=== PATIENT | female | born 1975 | race Two or more races ===

== ENCOUNTER 2016-07-22 22:59 | Emergency (ER) | payer MEDICAID ==
[2016-07-23 00:09] LABS: COLOR PALE YELLOW; LEUKOCYTE ESTERASE,URINE NEGATIVE (NEGATIVE); NITRITE,URINE NEGATIVE (NEGATIVE)
[2016-07-23 00:12] LABS: BACTERIA TRACE /hpf (NONE SEEN); MUCUS TRACE /lpf (NONE-1+)
[2016-07-23] MEDS ORDERED: ACETAMINOPHEN 500 MG TAB PO ONE (00:14)
--- NOTE | 2016-07-23 00:15 | EDPHY ---
H & P Stated Complaint: Body aches, Sore throat, dry mouth, coughing for two days Time Seen by Provider: 07/22/16 23:23 HPI/ROS: HPI The patient presents with 3 days of myalgias, sore throat, cough, bilateral ear pain, back pain. This is associated with subjective fever. Her is also sick. Her throat pain is what is bothering her the worst right now, it is achy , worse when she swallows, is not associated with any neck pain or stiffness. It is moderate in severity. She has not had a flu shot this year. She reports increased urinary frequency without dysuria.. REVIEW OF SYSTEMS Constitutional: See HPI Eyes: No discharge. ENT: + sore throat. Cardiovascular: No chest pain, no palpitations. Respiratory: + cough, no shortness of breath. Gastrointestinal: No abdominal pain, no vomiting. Genitourinary: No hematuria. Musculoskeletal: No back pain. Skin: No rashes. Neurological: No headache. PMHx: Healthy, followed at [facility] Hx: No alcohol or drug use PHYSICAL General Appearance: Alert, no distress Eyes: Pupils equal and round no pallor or injection ENT, Mouth: Mucous membranes moist, posterior pharynx is injected Respiratory: There are no retractions, lungs are clear to auscultation Cardiovascular: Tachycardic rate and regular rhythm Gastrointestinal: Abdomen is soft and non-tender, no masses, bowel sounds normal Neurological: A&O, moves all extremities Skin: Warm and dry, no rashes Musculoskeletal: Neck is supple non tender Extremities: symmetrical, full range of motion Psychiatric: Patient is oriented X 3, there is no agitation Source: Patient - Personal History LMP (Females 10-55): 8-14 Days Ago Current Tetanus/Diphtheria Vaccine: Unsure Current Tetanus Diphtheria and Acellular Pertussis (TDAP): Unsure - Medical/Surgical History Hx Asthma: No Hx Chronic Respiratory Disease: No Hx Diabetes: No Hx Cardiac Disease: No Hx Renal Disease: No Hx Cirrhosis: No Hx Alcoholism: No Hx HIV/AIDS: No Hx Splenectomy or Spleen Trauma: No Other PMH: Ectopic . - Social History Smoking Status: Never smoked Constitutional: Initial Vital Signs Temperature (C) 37.5 C 07/22/16 23:01 Heart Rate 119 H 07/22/16 23:01 Respiratory Rate 18 07/22/16 23:01 Blood Pressure 129/89 H 07/22/16 23:01 O2 Sat (%) 94 07/22/16 23:01 O2 Delivery Mode Room Air Allergies/Adverse Reactions: No Known Allergies Allergy (Verified 07/22/16 23:06) Home Medications: Medication Instructions Recorded No Medications [NO HOME 1 ea [facility] [place] 08/10/11 MEDICATIONS] Medical Decision Making - Diagnostics Imaging: Chest x-ray two views demonstrates no infiltrate, no effusion, interpreted by me , radiology interpretation is pending. ED Course/Re-evaluation: The patient was given Tylenol for her symptoms in the emergency room. Labs returned and her flu swab was positive for flu B. She has had 3 days of symptoms now and would not benefit from Tamiflu. I have discussed the diagnosis with her. She will be discharged from the emergency room. Differential Diagnosis: This is a 41-year-old healthy female who presents with 3 days of myalgias, sore throat, fever which is subjective, cough. Differential diagnosis includes influenza, pneumonia, pharyngitis, UTI. - Data Points Laboratory Results: 07/22/16 07/22/16 23:45 23:45 Urine Color PALE YELLOW Urine Appearance CLEAR Urine pH 5.0 (5.0-7.5) Ur Specific [place] 1.008 (1.002-1.030) Urine Protein NEGATIVE (NEGATIVE) Urine Ketones NEGATIVE (NEGATIVE) Urine Blood 2+ H (NEGATIVE) Urine Nitrate NEGATIVE (NEGATIVE) Urine Bilirubin NEGATIVE (NEGATIVE) Urine Urobilinogen NEGATIVE EU EU (0.2-1.0) Ur Leukocyte Esterase NEGATIVE (NEGATIVE) Urine RBC 1-3 /hpf /hpf (0-3) Urine WBC 1-3 /hpf /hpf (0-3) Ur Epithelial Cells TRACE /lpf /lpf (NONE-1+) Urine Bacteria TRACE /hpf H /hpf (NONE SEEN) Urine Mucus TRACE /lpf /lpf (NONE-1+) Urine Glucose NEGATIVE (NEGATIVE) Influenza Typ A,B (DFA) POSITIVE FOR FLU B H (NEGATIVE) Medications Given: Discontinued Medications Acetaminophen (Tylenol) 1,000 mg PO EDNOW ONE Stop: 07/23/16 00:15 Last Admin: 07/23/16 00:21 Dose: 1,000 mg Departure - Departure Disposition: Home, Routine, Self-Care Clinical Impression: Influenza B Condition: Good Instructions: Influenza (ED) Additional Instructions: Please make sure to drink plenty of fluids, you can take ibuprofen or Tylenol as needed for pain. Referrals: Ayala Pate [Primary Care Provider] - As per Instructions
[2016-07-23] MEDS ORDERED: DEXAMETHASONE 10 MG/ML VIAL PO ONE (00:51)
[2016-07-23 00:57] VITALS: BP 125/78; PULSE 78; RESP 16; TEMP 97.9; O2SAT 97
== END 2016-07-23 00:57 | disposition home or self-care (01) ==
DX: J10.1 Influenza due to other identified influenza virus with other respiratory manifestations (principal)

== ENCOUNTER → 2017-08-13 | Outpatient (CLI) | payer MEDICAID | LOC: FIMAGING 11:15 | PROVIDERS: ATTEND Physician Assistant Medical | DX: Z12.31 Encounter for screening mammogram for malignant neoplasm of breast (principal) ==